=== PATIENT | male | born 1995 | race Caucasian/White ===

== ENCOUNTER 2017-04-11 11:37 | Inpatient (IN) | payer OTHER ==
[~2017-04-11] VITALS: Ht 188 cm; Wt 80.0 kg
[2017-04-11] MEDS ORDERED: CEFTRIAXONE SOD INJ 1 GM ADDVIAL IV STA (11:47)
[2017-04-11] MEDS ORDERED: MoRPHine SULFATE 10 MG/ML CARP/VIAL IV STA (11:47)
[2017-04-11] MEDS ORDERED: KETOROLAC TROMETHAMINE 30 MG/ML VIAL IV STA (11:47)
[2017-04-11] MEDS ORDERED: ONDANSETRON INJ 2 MG/ML 2 ML VIAL IV STA (11:56)
[2017-04-11 12:19] LABS: BASO % 0.7 %; BASO ABS # 0.07 K/uL (0-0.2); EOS ABS # 0.41 K/uL (0-0.5); HEMOGLOBIN 15.2 g/dL (14.0-18.0); IG# 0.01 K/uL (0.00-0.02); LYMPH % 35.3 %; LYMPH ABS # 3.62 K/uL (1.2-3.4); MEAN CELL VOLUME 88.6 fL (80-100); MEAN CORPUSCULAR HEMOGLOBIN 32.1 pg (25-34); MEAN CORPUSCULAR HGB CONC 36.2 g/dl (32-36); MEAN PLATELET VOLUME 11.5 fL (7.4-10.4); MONO % 6.1 %; MONO ABS # 0.63 K/uL (0.11-0.59); NEUT % 53.8 %; NEUT ABS # 5.51 K/uL (1.4-6.5); PLATELET COUNT 189 K/uL (130-400); RED CELL DISTRIBUTION WIDTH CV 12.2 % (11.5-14.5); RED CELL DISTRIBUTION WIDTH SD 39.3 fL (36.4-46.3); WHITE BLOOD COUNT 10.25 K/uL (4.8-10.8)
[2017-04-11 12:35] LABS: CREATININE 1.1 mg/dl (0.60-1.40); POTASSIUM 3.5 mmol/L (3.5-5.1)
--- NOTE | 2017-04-11 12:43 | DIAGNOSTIC IMAGING REPORT ---
R HEEL MIN 2 VIEWS CLINICAL HISTORY: Pneumatic nail through boot/socks/heel foreign body COMPARISON: None. DISCUSSION: Limited exam to the lateral projection as well as oblique film. Metallic nail appearing to traverse the posterior calcaneus. Nevertheless, definite bony involvement cannot be confirmed due to difficulties in patient positioning. There is no evidence for soft tissue swelling. IMPRESSION: Metallic nail in a limited series of 2 films. Metallic nail appearing to traverse the posterior calcaneus with no evidence for fracture. If absolute confirmation of location is required as well as bony involvement, CT study should be considered. The above report was generated using voice recognition software. It may contain grammatical, syntax or spelling errors. Electronically signed by: Ivan Arellano M.D. 04/11/2017 12:42 PM Dictated Date/Time: 04/11/2017 12:36 PM
[2017-04-11] MEDS ORDERED: HYDROmorphone INJ 1 MG/ML SYR IV STA (12:48)
[2017-04-11] MEDS ORDERED: HYDROmorphone INJ 0.5 MG/0.5 ML SYR IV STA (13:43)
--- NOTE | 2017-04-11 13:47 | DIAGNOSTIC IMAGING REPORT ---
CT LOWER EXTREMITY WITHOUT CT DOSE: CLINICAL HISTORY: Foreign body nail within the hindfoot. Evaluate for calcaneal involvement. TECHNIQUE: Helical images were acquired in the transverse plane. Sagittal and coronal reformatted imaging was performed A dose lowering technique was utilized adhering to the principles of ALARA. COMPARISON STUDY: Conventional radiographic study dated 04/11/2017 FINDINGS: There is a transversely oriented nail traversing the far posterior aspect of the calcaneus. The now enters the medial calcaneus, and exits the lateral calcaneus. The nail traverses the patient's bruit. No additional bony abnormalities are visualized. IMPRESSION: There is a transversely oriented male which traverses the far posterior aspect of the calcaneus. Electronically signed by: Yovany Pearson M.D. 04/11/2017 1:46 PM Dictated Date/Time: 04/11/2017 1:38 PM
--- NOTE | 2017-04-11 15:28 | EMERGENCY ROOM VISIT NOTE ---
History First contact with patient: 11:42 Chief Complaint: FOOT PAIN Stated Complaint: SHOT NAIL IN HEEL OF FOOT History of Present Illness The patient is a 21 year old male who presents to the Emergency Room with complaints of a pneumatic nail injury to the right foot. The patient reports that he was operating a nail gun when it accidentally discharged the nail through his boot and into his heel. Injury happened approximately 20 minutes prior to arrival. He rates his discomfort a 9 out of 10. The patient is uncertain of his last tetanus immunization. Review of Systems HEENT: Denies dizziness, visual problems, hearing loss, tinnitus. Denies difficulty swallowing or oral lesions. PULMONARY: Denies cough, shortness of breath, sputum production or hemoptysis. CARDIOVASCULAR: Denies chest pain, palpitations, dyspnea on exertion, orthopnea or peripheral edema. GASTROINTESTINAL: Denies diarrhea, constipation, nausea, vomiting, or abdominal pain. GENITOURINARY: Denies dysuria, frequency, urgency or nocturia. NEUROLOGIC: Denies history of epilepsy, CVA, TIA or chronic headaches. MUSCULOSKELETAL: Denies history of joint tenderness/swelling. SKIN: Denies rashes or lesions. PSYCHIATRIC: Denies history of depression or mental illness. ENDOCRINE: Denies history of diabetes or thyroid disorders. Past Medical/Surgical History Medical Problems: (1) Tobacco Use Disorder Surgical Problems: (1) No history of previous surgery Social History Smoking Status: Current Some Day Smoker Alcohol Use: occasionally Marital Status: single Housing Status: lives with family Occupation Status: employed Current/Historical Medications No Active Prescriptions or Reported Meds Physical Exam Vital Signs Date Time Temp Pulse Resp B/P (MAP) Pulse Ox O2 Delivery O2 Flow Rate FiO2 04/11/17 14:01 81 18 124/76 98 Room Air 04/11/17 11:38 36.7 81 17 128/81 98 Room Air Physical Exam CONSTITUTIONAL: Healthy and well nourished. Alert and oriented X 3 with positive affect. Patient appears in moderate discomfort from pain. HEENT: Normocephalic, atraumatic. Pupils equal, round and reactive. NECK: Full active range of motion without discomfort. RESPIRATORY: Clear to auscultation bilaterally with no wheezing, crackles, rhonchi or stridor. CARDIOVASCULAR: Regular rate and rhythm with no murmurs, rubs or gallops. GASTROINTESTINAL: Bowel sounds present in all quadrants. Soft and nontender to palpation. MUSCULOSKELETAL: Examination of the right foot shows a nail penetrating the boot along the medial calcaneal/Achilles tendon level, with the nail exiting the boot along the posterolateral distal Achilles region. Further examination of the foot could not be performed because the boot was not removed until x- rays could be performed, and because of patient discomfort. INTEGUMENTARY: No rash or other significant dermatologic conditions noted. NEUROLOGIC: No focal neurologic deficits noted. Medical Decision & Procedures ER Provider Diagnostic Interpretation: My interpretation of right calcaneal x-rays suggests calcaneal penetration of the nail; however, exact location not be determined secondary to the views taken. No other fractures noted. Radiologist report is as follows: R HEEL MIN 2 VIEWS CLINICAL HISTORY: Pneumatic nail through boot/socks/heel foreign body COMPARISON: None. DISCUSSION: Limited exam to the lateral projection as well as oblique film. Metallic nail appearing to traverse the posterior calcaneus. Nevertheless, definite bony involvement cannot be confirmed due to difficulties in patient positioning. There is no evidence for soft tissue swelling. IMPRESSION: Metallic nail in a limited series of 2 films. Metallic nail appearing to traverse the posterior calcaneus with no evidence for fracture. If absolute confirmation of location is required as well as bony involvement, CT study should be considered. Noncontrast CT of the foot shows a transversely oriented nail that traverses the far posterior aspect of the calcaneus. Radiologist report is as follows: CT LOWER EXTREMITY WITHOUT CT DOSE: CLINICAL HISTORY: Foreign body nail within the hindfoot. Evaluate for calcaneal involvement. TECHNIQUE: Helical images were acquired in the transverse plane. Sagittal and coronal reformatted imaging was performed A dose lowering technique was utilized adhering to the principles of ALARA. COMPARISON STUDY: Conventional radiographic study dated 04/11/2017 FINDINGS: There is a transversely oriented nail traversing the far posterior aspect of the calcaneus. The now enters the medial calcaneus, and exits the lateral calcaneus. The nail traverses the patient's bruit. No additional bony abnormalities are visualized. IMPRESSION: There is a transversely oriented male which traverses the far posterior aspect of the calcaneus. Laboratory Results 04/11/17 11:50 Red Blood Count 4.74, Mean Corpuscular Volume 88.6, Mean Corpuscular Hemoglobin 32.1, Mean Corpuscular Hemoglobin Concent 36.2, Mean Platelet Volume 11.5, Neutrophils (%) (Auto) 53.8, Lymphocytes (%) (Auto) 35.3, Monocytes (%) (Auto) 6.1, Eosinophils (%) (Auto) 4.0, Basophils (%) (Auto) 0.7, Neutrophils # (Auto) 5.51, Lymphocytes # (Auto) 3.62, Monocytes # (Auto) 0.63, Eosinophils # (Auto) 0.41, Basophils # (Auto) 0.07 04/11/17 11:50 Test 04/11/17 11:50 White Blood Count 10.25 K/uL (4.8-10.8) Red Blood Count 4.74 M/uL (4.7-6.1) Hemoglobin 15.2 g/dL (14.0-18.0) Hematocrit 42.0 % (42-52) Mean Corpuscular Volume 88.6 fL (80-100) Mean Corpuscular Hemoglobin 32.1 pg (25-34) Mean Corpuscular Hemoglobin Concent 36.2 g/dl (32-36) Platelet Count 189 K/uL (130-400) Mean Platelet Volume 11.5 fL (7.4-10.4) Neutrophils (%) (Auto) 53.8 % Lymphocytes (%) (Auto) 35.3 % Monocytes (%) (Auto) 6.1 % Eosinophils (%) (Auto) 4.0 % Basophils (%) (Auto) 0.7 % Neutrophils # (Auto) 5.51 K/uL (1.4-6.5) Lymphocytes # (Auto) 3.62 K/uL (1.2-3.4) Monocytes # (Auto) 0.63 K/uL (0.11-0.59) Eosinophils # (Auto) 0.41 K/uL (0-0.5) Basophils # (Auto) 0.07 K/uL (0-0.2) RDW Standard Deviation 39.3 fL (36.4-46.3) RDW Coefficient of Variation 12.2 % (11.5-14.5) Immature Granulocyte % (Auto) 0.1 % Immature Granulocyte # (Auto) 0.01 K/uL (0.00-0.02) Anion Gap 7.0 mmol/L (3-11) Est Creatinine Clear Calc Drug Dose 122.2 ml/min Estimated GFR () 112.2 Estimated GFR (Non- 96.8 BUN/Creatinine Ratio 20.9 (10-20) Calcium Level 9.0 mg/dl (8.5-10.1) Labs were reviewed and were grossly normal. Medications Administered Medications (Trade) Dose Ordered Sig/Lita Route Start Time Stop Time Status Last Admin Dose Admin Ceftriaxone Sodium (Rocephin Inj) 1 gm NOW STAT IV 04/11/17 11:47 04/11/17 11:50 DC 04/11/17 12:01 1 GM Ketorolac Tromethamine (Toradol Inj) 30 mg NOW STAT IV 04/11/17 11:47 04/11/17 11:50 DC 04/11/17 12:01 30 MG Morphine Sulfate (MoRPHine SULFATE INJ) 8 mg NOW STAT IV 04/11/17 11:47 04/11/17 11:51 DC 04/11/17 12:02 8 MG Ondansetron HCl (Zofran Inj) 4 mg NOW STAT IV 04/11/17 11:56 04/11/17 11:57 DC 04/11/17 13:04 4 MG Hydromorphone HCl (Dilaudid Inj) 1 mg NOW STAT IV 04/11/17 12:48 04/11/17 12:49 DC 04/11/17 13:05 1 MG Hydromorphone HCl (Dilaudid Inj) 0.5 mg NOW STAT IV 04/11/17 13:43 04/11/17 13:44 DC 04/11/17 14:01 0.5 MG ED Course Patient history and physical exam were performed. Nurse's notes were reviewed. Vital signs were reviewed and were normal. IV access was established, and labs were drawn. The patient was administered IV morphine, Toradol and Zofran for pain. He was also administered Rocephin 1 g IV infusion. X-rays of the right calcaneus and CT of the foot shows through and through penetration of the far posterior calcaneus. The patient did receive additional doses of Dilaudid IVP for persistent pain. The case was also reviewed with Dr. Schofield, ED attending physician, who recommended orthopedic consultation. [facility] is administrative personal assistant. The patient was evaluated by Raúl Painting PA-C who will discuss further operative management with an orthopedic surgeon. Please see their dictation for further treatment and final disposition. Medical Decision [place] Drug Monitoring Program Search Results: patient reviewed within database Medication Reconcilliation Current Medication List: was personally reviewed by [place] Blood Pressure Screening Patient's blood pressure: Normal blood pressure Impression Primary Impression: Foreign body in right foot Departure Information Prescriptions No Active Prescriptions or Reported Meds Referrals Iglesia Quintero D.O. (PCP) Patient Instructions My [facility] Problem Qualifiers Primary Impression: Foreign body in right foot Encounter type: initial encounter Qualified Codes: S90.851A - Superficial foreign body, right foot, initial encounter
--- NOTE | 2017-04-11 15:43 | History & Physical Bridge Note ---
H&P Re-Evaluation Bridge Note: I have examined the patient, reviewed the History & Physical and in the interval since the performance of the History & Physical I have noted the following changes of clinical significance: Removal framing nail from right calcaneus, I and D right foot puncture wounds x 2.
[2017-04-11] MEDS ORDERED: BACITRACIN 50000 UNIT VIAL ONE ×2 (16:03→16:58)
[2017-04-11] MEDS ORDERED: LIDOCAINE HCL 2% 2 ML VIAL (20MG/ML) ONE (16:05)
[2017-04-11] MEDS ORDERED: ONDANSETRON INJ 2 MG/ML 2 ML VIAL ONE (16:05)
[2017-04-11] MEDS ORDERED: FENTANYL CITRATE INJ 50 MCG/1 ML 2 ML VIAL ONE (16:05)
[2017-04-11] MEDS ORDERED: DEXAMETHASONE SOD INJ 4 MG/ML VIAL ONE (16:05)
[2017-04-11] MEDS ORDERED: MIDAZOLAM HCL 1 MG/ML 2ML VIAL ONE (16:05)
[2017-04-11] MEDS ORDERED: PROPOFOL IV EMULSION 10 MG/ML 20 ML VIAL IV ONE (16:05)
--- NOTE | 2017-04-11 16:28 | History and Physical ---
History & Physical Date Apr 11, 2017. 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 He put nails in the wood with a nail gun then tried to put the nail gun behind him and set it on the floor. He put the nail gun down but his hand must have hit the trigger and it discharged a nail into his medial heel. The nail passed through his boot and exited the lateral side of his heel. He was brought to [facility] ER where x-rays and a CT were performed. He is now being set up for surgical management. Past Medical/Surgical History Medical Problems: (1) Tobacco Use Disorder Surgical Problems: (1) No history of previous surgery Allergies Coded Allergies: No Known Allergies (Unverified , 04/11/17) Home Medications No Active Prescriptions or Reported Meds Physical Examination Skin: warm/dry, no rash Eyes: normal inspection ENT: normal ENT inspection Head: normocephalic, atraumatic Neck: supple, no adenopathy, trachea midline Respiratory/Chest: lungs clear, normal breath sounds, no respiratory distress Cardiovascular: regular rate, rhythm Abdomen / GI: normal bowel sounds, non tender Extremities: + pertinent finding (Right foot: His work boot is still on. The head of the nail is at the medial aspect of the heel and touching the leather on his boot. The lateral side of the heel has ~1 inch of a nail visible with blood on the nail. No other testing could be performed on the ankle/foot.) Neurologic/Psych: alert, oriented x 3 Addiitonal Comments: CT of the right ankle demonstrates a nail through the most posterior aspect of the calcaneus that enters through the posteromedial aspect of the calcaneus and exits through the medial aspect of the posterior heel. Diagnosis Right foot foreign body (nail) in the calcaneus Plan of Treatment Plan for transfer from ER to the OR where a removal of foreign body and I & D heel/calcaneus are to be performed. All potential risks, benefits, complications, alternatives, and rehab have been discussed and the patient wishes to proceed. He will go to the OR today 04.11.17.
[2017-04-11] MEDS ORDERED: CEFAZOLIN SOD 2000MG/15 ML IV PUSH IV ONE (16:31)
[2017-04-11] MEDS ORDERED: SODIUM CHLORIDE 0.9% INJ 10 ML VIAL ONE (16:38)
[2017-04-11] MEDS ORDERED: HYDROmorphone INJ 2 MG/ML SYR/VIAL ONE (16:39)
[2017-04-11] MEDS ORDERED: FENTANYL CITRATE INJ 50 MCG/1 ML 2 ML VIAL IV PRN (16:45)
[2017-04-11] MEDS ORDERED: EpHEDrine SULFATE INJ 50 MG/ML AMP IV PRN (16:45)
[2017-04-11] MEDS ORDERED: MEPERIDINE HCL 25 MG/ML CARP IV PRN (16:45)
[2017-04-11] MEDS ORDERED: ATROPINE SULFATE 0.1 MG/ML 5ML SYR IV PRN (16:45)
[2017-04-11] MEDS ORDERED: LABETALOL HCL IV 5 MG/ML 20ML IV PRN (16:45)
[2017-04-11] MEDS ORDERED: HYDROmorphone INJ 1 MG/ML SYR IV PRN (16:45)
[2017-04-11] MEDS ORDERED: ONDANSETRON INJ 2 MG/ML 2 ML VIAL IV PRN ×2 (16:45→17:30)
[2017-04-11] MEDS ORDERED: BUPIVACAINE 0.5 % 5 MG/1 ML MPF 30ML VIAL ONE (17:01)
--- NOTE | 2017-04-11 17:21 | [facility] Post Operative Brief Note ---
Immediate Operative Summary Operative Date Apr 11, 2017. Pre-Operative Diagnosis Right Calcaneus Foreign Body(Framing Nail); Nailgun injury to heel Post-Operative Diagnosis Right Calcaneus Foreign Body (Framing Nail), Nailgun injury to heel Procedure(s) Performed Right Calcaneus Foreign Body Removal (framing nail), Incision and Drainage calcaneus and fascia right Surgeon Dr Humphrey Wright Supervisor Cytology Surgeon(s) Wilfred Noguera PA-C Estimated Blood Loss 5cc Findings Consistent with Post-Op Diagnosis Specimens As Per Surgeon A. Explanted Foreign Body Right Foot Drains iodoform gauze x 2 Anesthesia Type General (local) Complication(s) none Disposition Accompanied Pt To Recover: no Disposition: Recovery Room / PACU
[2017-04-11] MEDS ORDERED: SOD PHOSPHATE/SOD BIPHOSPHATE ENEMA 132 ML BTL PR PRN (17:30)
[2017-04-11] MEDS ORDERED: ZOLPIDEM TARTRATE 5 MG TAB PO PRN (17:30)
[2017-04-11] MEDS ORDERED: MoRPHine SULFATE 2 MG/ML CARP IV PRN (17:30)
[2017-04-11] MEDS ORDERED: MAGNESIUM HYDROXIDE SUSP 30 ML UDC PO PRN (17:30)
[2017-04-11] MEDS ORDERED: ALUMINUM/MAGNESIUM/SIMETH (MAALOX MAX) 30 ML UDC PO PRN (17:30)
[2017-04-11] MEDS ORDERED: BISACODYL 10 MG SUPP PR PRN (17:30)
--- NOTE | 2017-04-11 18:19 | Anesthesiology Progress Note ---
Anesthesia Post Op Note Date & Time Apr 11, 2017 at 18:19 Vital Signs Pain Intensity: 0 Vital Signs Past 12 Hours Date Time Temp Pulse Resp B/P (MAP) Pulse Ox O2 Delivery O2 Flow Rate FiO2 04/11/17 18:15 36.8 67 20 138/76 100 Room Air 04/11/17 18:05 36.8 61 17 126/79 100 Room Air 04/11/17 17:55 48 17 114/56 100 Oxymask 10 04/11/17 17:45 49 14 115/60 100 Oxymask 10 04/11/17 17:35 50 14 112/54 100 Oxymask 10 04/11/17 17:27 36.6 48 14 106/46 100 Oxymask 10 04/11/17 15:21 60 18 124/76 98 Room Air 04/11/17 14:01 81 18 124/76 98 Room Air 04/11/17 11:38 36.7 81 17 128/81 98 Room Air Notes Mental Status: alert / awake / arousable, participated in evaluation Pt Amnestic to Procedure: Yes Nausea / Vomiting: adequately controlled Pain: adequately controlled Airway Patency, RR, SpO2: stable & adequate BP & HR: stable & adequate Hydration State: stable & adequate Anesthetic Complications: no major complications apparent
[2017-04-11 18:40] VITALS: BP 150/86; PULSE 79; TEMP 36.5; O2SAT 100; Ht 188 cm; Wt 80.0 kg
[2017-04-11 19:10] VITALS: BP 130/85; PULSE 49; TEMP 36.4; O2SAT 100
[2017-04-11] MEDS: POTASSIUM CHLORIDE INJ 10 MEQ in SODIUM CHLORIDE 0.9% 1000ML 1,000 ML IV SCH (19:13)
[2017-04-11 19:40] VITALS: BP 129/77; PULSE 49; TEMP 36.7; O2SAT 100
[2017-04-11] MEDS: OXYCODONE/ACETAMINOPHEN 5-325 TAB PO PRN (20:13)
[2017-04-11 20:40] VITALS: BP 124/79; PULSE 49; TEMP 36.9; O2SAT 100
[2017-04-11] MEDS ORDERED: SENNA 8.6 MG TAB PO SCH (21:00)
[2017-04-11 21:40] VITALS: BP 138/82; PULSE 49; TEMP 36.6; O2SAT 100
[2017-04-11] MEDS: DOCUSATE SODIUM 100 MG CAP PO SCH (21:56)
[2017-04-11 22:55] VITALS: BP 133/72; PULSE 52; TEMP 36.4; O2SAT 99
[2017-04-11] MEDS: CEFAZOLIN IV 2,000 MG in SYRINGE 0 ML IV SCH (23:35)
--- NOTE | 2017-04-12 02:28 | OPERATIVE REPORT ---
DATE OF OPERATION: 04/11/2017 PREOPERATIVE DIAGNOSES: 1. Right calcaneal foreign body. 2. Nail gun injury to heel. POSTOPERATIVE DIAGNOSES: Same. PROCEDURES: 1. Right calcaneus removal of foreign body (framing nail). 2. Incision and drainage with debridement of calcaneal bone and fascia both medial and lateral aspects of the heel. SURGEON: Dr. Freeman Wright. PERFORATOR OPERATOR: Wilfred Noguera PA-C. ANESTHESIA: General with local. SPECIMENS: Explanted foreign body, right foot. DRAINS: Iodoform gauze x2. COMPLICATIONS: None. 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 He bent over with the nail gun in his hand. He believes that his finger was near the trigger or on the trigger. He believes that the tip of the nail gun brushed something and caused the nail gun to discharge firing a nail into his medial right calcaneus and heel region. He had been unable to remove the nail. It lodged into his boot impaling the boot to his heel. He was then transferred to [facility]. He was seen and evaluated, then the orthopedics was consulted after radiographs were obtained. The patient was then scheduled for surgery as indicated. All potential risks, benefits, complications, alternatives, rehab, potential for incomplete relief of symptoms, need further surgery, DVT, PE, , persistent pain, swelling, scarring, weakness, neurovascular injury, wound complications, bone fracture and other further complications were discussed with the patient. The patient decided to proceed with the procedure as indicated. DESCRIPTION OF PROCEDURE: The patient was taken to the operative suite, placed supine on the operating room table. After review of the consent and identification of the proper operative site, the patient was then anesthetized. LMA was placed. Next, the nail, which was impaling his heel on both medial and lateral sides, a large framing nail; first it was coated with Betadine and then backed out slightly with a small mallet and then after the tip could be grasped, the tip of the nail under the head was then cut off with a firewood cutter. Next, the boot could not be removed. Therefore, the nail was then prepped once again with Betadine. It was grasped with a large plier and then pulled from the long end to reduce the amount of contamination through the heel. Next, the boot and sock was removed and the limb was then sterilely prepped and draped in usual fashion and a tourniquet was applied high on the right thigh over cast padding. Right lower extremity was then sterilely prepped and draped in usual fashion, elevated and tourniquet inflated to 325 mmHg. Next, 15-blade scalpel incisions were made both medially and laterally along the heel, the site of the area of the foreign body and a small curet was then used to curettage the bone both medial and lateral and then a rongeur and curette were then used to curettage and rongeur the soft tissues that were involved with the damage from the framing nail. Next, pulsatile lavage, 3 liters of bacitracin was then used to cleanse through and through the tract of the nail and then iodoform gauze 1/2 inch was then placed on either side of the nail tract and then a single stitch was then placed with a 4-0 nylon suture, medial and lateral. Next, sterile compressive dressing was applied after Marcaine injection was performed for local anesthetic medial and lateral. This was overwrapped with an Gama wrap. The tourniquet was released. The patient was awakened and taken to recovery in stable condition. I attest to the content of the Intraoperative Record and any orders documented therein. Any exception s are noted below.
[2017-04-12 03:02] VITALS: BP 105/58; PULSE 53; TEMP 36.8; O2SAT 98
[2017-04-12] MEDS: POTASSIUM CHLORIDE INJ 10 MEQ in SODIUM CHLORIDE 0.9% 1000ML 1,000 ML IV SCH (04:50)
[2017-04-12] MEDS ORDERED: CEFAZOLIN SOD 2000MG/15 ML IV PUSH IV ONE (06:00)
[2017-04-12 07:16] LABS: HEMOGLOBIN 14.4 g/dL (14.0-18.0); MEAN CELL VOLUME 90.7 fL (80-100); MEAN CORPUSCULAR HEMOGLOBIN 31.9 pg (25-34); MEAN CORPUSCULAR HGB CONC 35.1 g/dl (32-36); MEAN PLATELET VOLUME 12.2 fL (7.4-10.4); PLATELET COUNT 143 K/uL (130-400); RED CELL DISTRIBUTION WIDTH CV 12.4 % (11.5-14.5); WHITE BLOOD COUNT 12.37 K/uL (4.8-10.8)
[2017-04-12 07:27] VITALS: BP 136/73; PULSE 53; TEMP 36.5; O2SAT 98
[2017-04-12] MEDS: OXYCODONE/ACETAMINOPHEN 5-325 TAB PO PRN (07:36)
[2017-04-12] MEDS: CEFAZOLIN IV 2,000 MG in SYRINGE 0 ML IV SCH (07:39)
[2017-04-12] MEDS ORDERED: FERROUS GLUCONATE 324 MG TAB PO SCH (08:30)
[2017-04-12] MEDS ORDERED: MULTIVITAMIN TAB PO SCH (09:00)
--- NOTE | 2017-04-12 09:05 | Orthopedic Progress Note ---
Orthopedic Progress Note Date of Service Apr 12, 2017. Subjective Post OP Day: 1 Reports: feeling well, pain controlled w PO medications, Denies: complaints, chest pain, SOB, nausea / vomiting, light headedness, calf pain Objective calves soft nontender, N/V intact, capillary refill less than 2 sec., dressing C /D/I, A&O x3, toes mobile Date Time Temp Pulse Resp B/P (MAP) Pulse Ox O2 Delivery O2 Flow Rate FiO2 04/12/17 07:27 36.5 53 18 136/73 (94) 98 Room Air 04/12/17 03:02 36.8 53 14 105/58 (74) 98 Room Air 04/11/17 23:15 Room Air 04/11/17 22:55 36.4 52 14 133/72 (92) 99 Room Air 04/11/17 21:40 36.6 49 18 138/82 (100) 100 Room Air 04/11/17 20:40 36.9 49 18 124/79 (94) 100 Room Air 04/11/17 19:40 36.7 49 18 129/77 (94) 100 Room Air 04/11/17 19:10 36.4 49 18 130/85 (100) 100 Room Air 04/11/17 18:40 36.5 79 16 150/86 (107) 100 Room Air 04/11/17 18:40 100 Room Air 04/11/17 18:40 100 Room Air 04/11/17 18:25 36.8 75 20 130/76 100 Room Air 04/11/17 18:15 36.8 67 20 138/76 100 Room Air 04/11/17 18:05 36.8 61 17 126/79 100 Room Air 04/11/17 17:55 48 17 114/56 100 Oxymask 10 04/11/17 17:45 49 14 115/60 100 Oxymask 10 04/11/17 17:35 50 14 112/54 100 Oxymask 10 04/11/17 17:27 36.6 48 14 106/46 100 Oxymask 10 04/11/17 15:21 60 18 124/76 98 Room Air 04/11/17 14:01 81 18 124/76 98 Room Air 04/11/17 11:38 36.7 81 17 128/81 98 Room Air Laboratory Results 24 Hours: Test 04/11/17 11:50 04/12/17 06:00 White Blood Count 10.25 K/uL Red Blood Count 4.74 M/uL Hemoglobin 15.2 g/dL 14.4 g/dL Hematocrit 42.0 % 41.0 % Mean Corpuscular Volume 88.6 fL Mean Corpuscular Hemoglobin 32.1 pg Mean Corpuscular Hemoglobin Concent 36.2 g/dl Platelet Count 189 K/uL Mean Platelet Volume 11.5 fL Neutrophils (%) (Auto) 53.8 % Lymphocytes (%) (Auto) 35.3 % Monocytes (%) (Auto) 6.1 % Eosinophils (%) (Auto) 4.0 % Basophils (%) (Auto) 0.7 % Neutrophils # (Auto) 5.51 K/uL Lymphocytes # (Auto) 3.62 K/uL Monocytes # (Auto) 0.63 K/uL Eosinophils # (Auto) 0.41 K/uL Basophils # (Auto) 0.07 K/uL Assessment & Plan Assessment: POD#1 S/P Removal of nail in calcaneus Plan: Medical Management Patient is to wear the boot while walking Dressing change Discharge home today
[2017-04-12] MEDS: DOCUSATE SODIUM 100 MG CAP PO SCH (09:30)
[2017-04-12] MEDS ORDERED: OXYC-57 PO (09:59)
[2017-04-12] MEDS ORDERED: CEPH500C2 PO (09:59)
--- NOTE | 2017-04-12 10:04 | Discharge Instructions ---
Discharge Instructions Date of Service Apr 12, 2017. Admission Reason for Admission: Foreign Body In Right Foot Discharge Discharge Diagnosis / Problem: S/P removal foreign body in right calcaneus Discharge Goals Goal(s): Decrease discomfort, Improve function Activity Recommendations Activity Limitations: per Instructions/Follow-up section . Instructions / Follow-Up Instructions / Follow-Up ACTIVITY RECOMMENDATIONS: Limitations: Weight bearing as tolerated SPECIAL CARE INSTRUCTIONS: * Some drainage onto the dressing is normal and is no cause for alarm. * Some swelling is natural especially after walking. * When resting, keep your foot elevated above the level of your heart. * Call [facility] if you notice: -Increased drainage -Fever over 101 degrees F -Severe constant pain * TAKE ANTIBIOTICS DIRECTED TO HELP PREVENT INFECTION. BANDAGE: * Keep bandage on. Perform daily dressing changes and place back in boot. * May allow soapy water to run over incision. No scrubbing. FOLLOW UP VISIT WITH DR. ALMEIDA If appointment is not already scheduled: Please call [facility] after you get home today to schedule a follow-up appointment for [address] Almeida or his PA at . Current Hospital Diet Patient's current hospital diet: Regular Diet Discharge Diet Recommended Diet: Regular Diet Procedures Procedures Performed: Right Calcaneus Foreign Body Removal (framing nail), Incision and Drainage calcaneus and fascia right Pending Studies Studies pending at discharge: no Medical Emergencies . Who to Call and When: Medical Emergencies: If at any time you feel your situation is an emergency, please call 911 immediately. . Non-Emergent Contact Non-Emergency issues call your: Surgeon Call Non-Emergent contact if: temperature is above 101.5, your pain is worsening, wound has increased drainage, wound has increased redness . "Provider Documentation" section prepared by Wilfred Noguera. . VTE Core Measure Inpt VTE Proph given/why not?: Treatment not indicated [place] Drug Monitoring Program Search Results: patient reviewed within database, no issues identified
[2017-04-12 10:55] VITALS: BP 136/73; PULSE 53; TEMP 36.5; O2SAT 98
[2017-04-12 11:22] VITALS: BP 118/66; PULSE 65; O2SAT 98
== END 2017-04-12 11:42 | disposition home or self-care (01) | DRG 909 ==
LOC: C.EDB 11:38 → C.MSW 17:32 → ENRESERV 18:25
PROVIDERS: ADMIT Orthopaedic Surgery Sports Medicine; ATTEND Orthopaedic Surgery Sports Medicine
PROC: 0QCL0ZZ Extirpation of Matter from Right Tarsal, Open Approach (ICD-10-PCS; principal; 2017-04-11 14:00)
PROC: 0QDL0ZZ Extraction of Right Tarsal, Open Approach (ICD-10-PCS; principal; 2017-04-11 14:00)
DX: S91.341A Puncture wound with foreign body, right foot, initial encounter (principal); F17.200 Nicotine dependence, unspecified, uncomplicated; W45.0XXA Nail entering through skin, initial encounter; Y93.H3 Activity, building and construction; Y99.0 Civilian activity done for income or pay